=== PATIENT | male | born 1970 ===

== ENCOUNTER 2021-09-13 16:29 | Emergency (ER) | payer OTHER | END 2021-09-13 19:41 | disposition home or self-care (01) | LOC: JD.ED 16:29 | DX: R20.0 Anesthesia of skin (principal); E78.00 Pure hypercholesterolemia, unspecified; E78.1 Pure hyperglyceridemia; M79.632 Pain in left forearm; Z72.0 Tobacco use | CPT/HCPCS: 36415; 80053; 80061; 83735; 84443; 84484; 85025; 93005; 93010; 99284 ==